=== PATIENT | male | born 1985 | race Caucasian/White ===

== ENCOUNTER 2021-11-15 21:08 | Observation (INO) | payer BC ==
[2021-11-15] MEDS ORDERED: HYDROmorphone 1 MG/ML Syringe IVPUSH STA (21:42)
[2021-11-15] MEDS ORDERED: Ondansetron 4 MG/2 ML SDV IVPUSH ONE (21:42)
[2021-11-15] MEDS ORDERED: Iopamidol 612 MG/ML 100 ML Bottle IVPUSH ONE (21:48)
[2021-11-15] MEDS: Sodium Chloride 0.9% 10 ML Syringe FLUSH ONE ×2 (22:13→22:40)
[2021-11-15] MEDS: Sodium Chloride 0.9% 1,000 ML IV SCH (22:13)
[2021-11-15] MEDS ORDERED: HYDROmorphone 1 MG/ML Syringe IVPUSH ONE (22:36)
[2021-11-15] MEDS ORDERED: Ertapenem 1 GM in Sodium Chloride 0.9% 50 ML IV STA (22:59)
[2021-11-15 23:00] LABS: ESTIMATED GFR 89 mL/min (>60)
[2021-11-16] MEDS ORDERED: diphenhydrAMINE 50 MG/ML SDV IVPUSH ONE (01:05)
[2021-11-16] MEDS ORDERED: HYDROmorphone 1 MG/ML Syringe IVPUSH ONE (01:05)
[2021-11-16] MEDS ORDERED: Ondansetron 4 MG/2 ML SDV IVPUSH PRN ×2 (02:16→08:32)
[2021-11-16 02:21] VITALS: PULSE 77
[2021-11-16] MEDS: HYDROmorphone 1 MG/ML Syringe IVPUSH PRN ×2 (03:21→06:05)
[2021-11-16] MEDS: Sodium Chloride 0.9% 1,000 ML IV SCH (04:27)
[2021-11-16] MEDS ORDERED: Lidocaine 1% with EPINEPHrine 1:100,000 20 ML MDV ONE (08:09)
[2021-11-16] MEDS ORDERED: Bupivacaine 0.25% 10 ML SDV ONE (08:09)
[2021-11-16] MEDS ORDERED: fentaNYL 100 MCG/2 ML SDV IVPUSH PRN (08:32)
[2021-11-16] MEDS ORDERED: Lidocaine 1% 2 ML ONE (08:37)
[2021-11-16] MEDS ORDERED: ceFAZolin 2 GM Vial ONE (08:37)
[2021-11-16] MEDS ORDERED: Rocuronium 50 MG/5 ML Vial ONE (08:37)
[2021-11-16] MEDS ORDERED: Ondansetron 4 MG/2 ML SDV ONE (08:37)
[2021-11-16] MEDS ORDERED: fentaNYL 250 MCG/5 ML SDV ONE (08:38)
[2021-11-16] MEDS ORDERED: Propofol 200 MG/20 ML SDV ONE (08:38)
[2021-11-16] MEDS ORDERED: metroNIDAZOLE/Normal Saline 100 ML ONE (09:00)
[2021-11-16] MEDS ORDERED: Sugammadex Sodium 200 MG/2 ML VIAL ONE (09:18)
[2021-11-16] MEDS ORDERED: Acetaminophen 325 MG Tab PO PRN (10:08)
[2021-11-16] MEDS ORDERED: traMADol 50 MG Tab PO PRN (10:12)
[2021-11-16] MEDS ORDERED: HYDROmorphone 0.5 MG/0.5 ML Syringe IVPUSH PRN (10:12)
[2021-11-16] MEDS ORDERED: Ketorolac 15 MG/ML SDV IVPUSH SCH (11:00)
[2021-11-16 12:33] VITALS: BP 120/80
[2021-11-17] MEDS ORDERED: Losartan 25 MG Tab PO SCH (09:00)
== END 2021-11-16 12:05 | disposition home or self-care (01) ==
LOC: JD.ED 21:08 → JD.OB 23:56
PROVIDERS: ADMIT Surgery; ATTEND Surgery
DX: K35.80 Unspecified acute appendicitis (principal); I10 Essential (primary) hypertension; E66.9 Obesity, unspecified; G47.30 Sleep apnea, unspecified; Z88.6 Allergy status to analgesic agent; Z88.5 Allergy status to narcotic agent; Z86.16 Personal history of COVID-19; Z98.890 Other specified postprocedural states; Z79.899 Other long term (current) drug therapy; Z79.83 Long term (current) use of bisphosphonates; Z79.84 Long term (current) use of oral hypoglycemic drugs
CPT/HCPCS: 36415; 44970; 74177; 80053; 81001; 83690; 85007; 85027; 96361; 96365; 96375; 96376; 99285; A9270; G0378; J0690; J1170; J1200; J1335; J1885; J2405; J2704; J3010; J3490; J7030; Q9967; 00840; 99284